=== PATIENT | female | born 1965 | race Caucasian/White ===

== ENCOUNTER 2017-01-19 10:04 | Observation (INO) | payer BC ==
--- NOTE | ~2017-01-19 | HP ---
History And Physical [facility] [address] [place]. [address] NAME: YEN VEGA : 63 STATUS : ADM IN [facility]#: [id number] AGE: 51 ADM/REG DATE : 01/19/17 MR#: [id number] REPORT SERV DATE: 01/19/17 DICTATED BY: ERLIN METZGER DATE: 01/19/17 REPORT STATUS : Draft TRANSCRIBED BY: MODMaria Elena DATE: 01/19/17 DATE OF ADMISSION: 01/19/2017 CHIEF COMPLAINT: Non-ST elevation MS. HISTORY OF PRESENT ILLNESS: The patient is a 51-year-old woman with a history of type 2 diabetes, hypertension, hypercholesterolemia, and morbid obesity. She was previously seen by my partner, Dr. Danny Rosario for symptoms of palpitations secondary to PVCs and PACs. She was admitted to a treatment facility for opiate narcotic abuse. She felt poorly for the last two days. She had symptoms of fatigue, dyspnea, and some right-sided chest discomfort. She thought her blood pressure and blood sugar were low. She presented to a local emergency room where laboratory studies were checked. Initial troponin negative, second troponin 0.1, which is above the normal limits. She was transferred for further evaluation and for cardiac catheterization in the setting of a non-ST elevation MS to [facility]. The patient is examined today, in no distress. She is having some mild midsternal chest discomfort currently. She has not had any dyspnea. PAST MEDICAL HISTORY: 1. Morbid obesity. 2. Narcotic abuse/dependence. 3. History of back surgery. 4. Status post breast reduction surgery. 5. Status post cholecystectomy. 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 She rarely drinks alcohol. FAMILY HISTORY: There is no family history of early coronary artery disease. REVIEW OF SYSTEMS: A complete review of systems was obtained, which is negative in detail except as mentioned above in the HPI. ALLERGIES: ARE LISTED IN THE CHART, WHICH I REVIEWED. NOTABLY THESE INCLUDE SULFA AND SEVERAL ANTIBIOTICS. MEDICATIONS: Naloxone, Lexapro, Neurontin, insulin, Desyrel. PHYSICAL EXAMINATION: VITAL SIGNS: Blood pressure 127/80, heart rate of 74, respiratory rate of 14. GENERAL: Comfortable in no acute distress. HEENT: Anicteric. No xanthelasma. Lips without cyanosis. NECK: No JVD. Carotids 2+ and symmetric. No carotid bruits. LUNGS: CTA bilaterally. No wheezes or rhonchi. No accessory muscle use. COR: RRR. Normally placed PMI. Normal S1 and S2. No murmurs, rubs or gallops. ABD: Soft, nontender, nondistended. Normal bowel sounds. No abdominal bruits. History And Physical [address] [address] NAME: YEN VEGA : 63 STATUS : ADM IN PAT#: [id number] AGE: 51 ADM/REG DATE : 01/19/17 MR#: [id number] REPORT SERV DATE: 01/19/17 DICTATED BY: ERLIN METZGER DATE: 01/19/17 REPORT STATUS : Draft TRANSCRIBED BY: SARAH DATE: 01/19/17 EXT: No clubbing, cyanosis or edema 2+ and symmetric distal pulses. SKIN: Warm. Dry. No venous stasis changes. MS: No kyphosis. NEURO/PSYCH: Oriented x3. No anxiety or depression. EK-lead EKG shows sinus rhythm at 68 beats per minute. T-wave inversions are seen in the anterior precordial leads. No Q-waves. Nonspecific T-wave abnormalities noted. LABORATORY STUDIES: From outside facility include potassium of 3.6, creatinine of 0.63. Troponin of 0.01 and 0.1. IMPRESSION: This is a 51-year-old woman with multiple cardiac risk factors including type 2 diabetes, morbid obesity, hypertension, hypercholesterolemia, who presents with chest pain and abnormal troponin consistent with a non-ST elevation myocardial infarction. I have recommended that the patient undergo cardiac catheterization with possible percutaneous coronary intervention. I explained the risks and benefits of this approach to the patient and family, who wished to proceed. NOEL/SARAH Erlin Metzger M.D. / [id number] CC: Diana Howard M.D.
[~2017-01-19 10:04] MED LIST: LEVEMIR SC; LEXAPRO20 PO; PERCOCET 7.5/321 TAB; V5 PO
[2017-01-19] MEDS ORDERED: NEUR300 PO ×2 (11:04→14:12)
[2017-01-19] MEDS ORDERED: TRAZ50 PO (11:52)
[2017-01-19] MEDS ORDERED: SUBOXONE 4 MG-1 EACH SL (11:56)
[2017-01-19] MEDS ORDERED: PERCOCET 10/3251 TAB PO (14:12)
[2017-01-19] MEDS ORDERED: CYMBALTA60 PO (14:12)
[2017-01-19] MEDS ORDERED: LEVEMFLXPN SC (14:12)
[2017-01-19] MEDS ORDERED: SUBOXONE SL (14:13)
[2017-01-19] MEDS ORDERED: METHOC500B PO (14:13)
[2017-01-19 14:17] LABS: BASOPHILS 0.5 %; BASOPHILS ABSOLUTE 0.04 10/3/uL (0.0-0.16); EOSINOPHILS 0.9 %; EOSINOPHILS ABSOLUTE 0.07 10/3/uL (0.0-0.53); HEMATOCRIT 38.9 % (36.0-48.0); HEMOGLOBIN 13.5 g/dL (12.0-16.0); IMMATURE GRANULOCYTES 0.1 %; IMMATURE GRANULOCYTES ABSOLUTE 0.01 10/3/uL (0.0-0.11); LYMPHOCYTES 45.9 %; LYMPHOCYTES ABSOLUTE 3.51 10/3/uL (0.67-4.30); MEAN CORPUS HGB CONC 34.7 g/dL (32.0-36.0); MEAN CORPUSCULAR HEMOGLOB 29.4 pg (26.0-34.0); MEAN CORPUSCULAR VOLUME 84.7 fL (80-100); MEAN PLATELET VOLUME 10.6 fL (9.2-13.0); MONOCYTES 4.8 %; MONOCYTES ABSOLUTE 0.37 10/3/uL (0.21-1.20); NEUTROPHILS 47.8 %; NEUTROPHILS ABSOLUTE 3.65 10/3/uL (2.02-8.40); PLATELET COUNT 237 10/3/uL (150-400); RBC DISTRIBUTION WIDTH 12.9 % (12.0-16.0); RED CELL COUNT 4.59 10/6/uL (4.0-5.6); WHITE BLOOD CELLS 7.7 10/3/uL (4.5-10.5)
[2017-01-19 14:18] LABS: MANUAL DIFF NO %
[2017-01-19 14:30] LABS: BUN (BLOOD UREA NITROGEN) 10 MG/DL (6-23); CALCIUM, SERUM 8.3 MG/DL (8.5-10.4); CHLORIDE, SERUM 106 MMOL/L (96-112); CHOL/HDL RATIO(NOT ORDER) 3.7 (0-5); CHOLESTEROL 188 MG/DL (< 200); CO2 (CARBON DIOXIDE) 26 MMOL/L (24-34); CREATININE 0.59 MG/DL (0.55-1.02); GFR AFRICAN AMERICAN 122 ML/MIN (>=60); GFR NON AFRICAN AMERICAN 105 ML/MIN (>=60); GLUCOSE, SERUM 78 MG/DL (60-99); HDL CHOLESTEROL 51 MG/DL (> 49); LDL CHOLESTEROL 122 MG/DL (< 130); NON-HDL CHOLESTEROL 137 MG/DL (< 160); POTASSIUM, SERUM 3.9 MMOL/L (3.5-5.3); SODIUM, SERUM 141 MMOL/L (135-148); TRIGLYCERIDE 76 MG/DL (< 150)
[2017-01-19 16:08] LABS: ASCORBIC ACID (UR NOT ORDER) NEG (NEG); BILIRUBIN, URINE NEGATIVE (NEG); KETONE, URINE NEGATIVE (NEG); LEUKOCYTE ESTERASE(NOT OR NEG (NEG); WBC (NOT ORDERED) (RFLEX) < 1 (0-5)
[2017-01-19 16:32] LABS: AMPHETAMINES (NOT ORD) NEG (NEG); BARBITURATES (NOT ORDERED NEG (NEG); BENZODIAZEPINES (NOT ORD) NEG (NEG); CANNABINOIDS (THC) NEG (NEG); COCAINE (NOT ORDERED) NEG (NEG); OPIATES NEG (NEG); PHENCYCLIDINE(PCP) NEG (NEG); TRICYCLICS NEG (NEG)
[2017-02-24] MEDS ORDERED: TRAZ50 PO (12:41)
[2017-02-25] MEDS ORDERED: V5 PO (17:29)
[2017-05-30] MEDS ORDERED: ULTRAM50 PO (08:30)
== END 2017-01-20 10:07 | disposition home or self-care (01) ==
LOC: 6NO 10:04
PROVIDERS: Internal Medicine; Internal Medicine Cardiovascular Disease
DX: I21.4 Non-ST elevation (NSTEMI) myocardial infarction (principal); E66.01 Morbid (severe) obesity due to excess calories; I10 Essential (primary) hypertension; E11.9 Type 2 diabetes mellitus without complications; E78.00 Pure hypercholesterolemia, unspecified; F41.9 Anxiety disorder, unspecified; F43.10 Post-traumatic stress disorder, unspecified; F32.9 Major depressive disorder, single episode, unspecified; Z98.890 Other specified postprocedural states; Z90.49 Acquired absence of other specified parts of digestive tract; Z88.2 Allergy status to sulfonamides; Z79.4 Long term (current) use of insulin; Z79.899 Other long term (current) drug therapy; Z88.8 Allergy status to other drugs, medicaments and biological substances; Z90.89 Acquired absence of other organs
CPT/HCPCS: 71010; 80048; 80061; 80305; 81001; 82962; 84484; 84703; 85025; 85610; 93005; 93458; 99152; A9270-GY; C1769; C1887; C1894; G0378; J1200; Q9967

== ENCOUNTER 2017-03-02 09:01 | Inpatient (IN) | payer BC ==
[2017-02-25 17:25] LABS: HEMATOCRIT 39.2 % (36.0-48.0); HEMOGLOBIN 13.8 g/dL (12.0-16.0)
[2017-02-25 17:41] LABS: BUN (BLOOD UREA NITROGEN) 16 MG/DL (6-23); CHLORIDE, SERUM 106 MMOL/L (96-112); CO2 (CARBON DIOXIDE) 34 MMOL/L (24-34); CREATININE 0.74 MG/DL (0.55-1.02); GFR AFRICAN AMERICAN 108 ML/MIN (>=60); GFR NON AFRICAN AMERICAN 93 ML/MIN (>=60); GLUCOSE, SERUM 125 MG/DL (60-99); POTASSIUM, SERUM 4.4 MMOL/L (3.5-5.3); SODIUM, SERUM 141 MMOL/L (135-148)
--- NOTE | ~2017-03-02 | DS ---
Discharge Summary [facility] [address] [place]. [address] NAME: YEN VEGA : 63 STATUS : DIS IN PAT#: [id number] AGE: 51 ADM/REG DATE : 03/02/17 MR#: [id number] REPORT SERV DATE: 03/17/17 DICTATED BY: TYLER SETHI II DATE: 03/16/17 REPORT STATUS : Draft TRANSCRIBED BY: SARAH DATE: 03/16/17 Data Collection from hospitalization DISCHARGE DIAGNOSES: 1. L5-S1 facet instability with history of decompression. 2. Mild L4-5 degenerative disk disease. 3. Significant Modic changes, L5-S1. 4. Right greater than left lower extremity recurrent radiculopathy. 5. Diabetes. 6. Hypertension. 7. Hyperlipidemia. 8. Premature ventricular contractions/premature atrial contractions. 9. Anxiety and depression. 10.Irritable bowel syndrome. CONSULTATIONS: None. PROCEDURES PERFORMED: Revision facetectomy for decompression of L5 and S1 nerve roots; interbody arthrodesis, L5-S1; application of prosthetic device, L5-S1; posterolateral arthrodesis, L5-S1; posterior nonsegmental instrumentation, L5-S1; use of local autograft, allograft substitute, and bone morphogenetic protein; use of microscope and stereotactic spinal imaging, 03/02/2017. PATHOLOGY: Lumbar spine repair-fragmented bone, cartilage, and soft tissue. No evidence was seen of an infectious or neoplastic process. MEDICATIONS: Valium half to one tablet twice a day as needed, Valium 5 mg four times a day as needed, Cymbalta 60 mg every morning, Neurontin as instructed, Levemir 25 units subcutaneously at bedtime, MS Contin 15 mg every 12 hours as needed, Desyrel 50 mg at bedtime. CONDITION AT DISCHARGE: Stable. DISPOSITION: The patient was discharged home on an 1800-calorie diabetic diet with activities as instructed. She would follow up with me, 03/25/2017 and with her primary care provider as needed. HOSPITAL COURSE: This is a 51-year-old female, who complained of thoracic and lumbar-related symptoms. The symptoms are located in the lower back and mid back with radiation into the bilateral lower extremities, chest, and abdomen. The patient has L5-S1 facet instability with history of decompression and mild L4-5 degenerative disk disease. She has right greater than left lower extremity radiculopathy and significant Modic changes at L5-S1. Treatment options were discussed and it was elected to proceed with surgical intervention. She was admitted to the hospital at this time for further evaluation and treatment. Upon admission, she was taken to the operating room, where she underwent the above-mentioned procedure. She tolerated this well and there were no complications. On postop day one, she was stable. She was alert and cooperative. She was in no acute distress. On postop day Discharge Summary [address] [address] NAME: YEN VEGA : 63 STATUS : DIS IN PAT#: [id number] AGE: 51 ADM/REG DATE : 03/02/17 MR#: [id number] REPORT SERV DATE: 03/17/17 DICTATED BY: TYLER SETHI II DATE: 03/16/17 REPORT STATUS : Draft TRANSCRIBED BY: SARAH DATE: 03/16/17 two, lower extremity radiculopathy was improving. We encouraged her to mobilize. Her medications were controlling her pain well. ALENA drain remained in place. On the , she did complain of left lower extremity radiculopathy. The right leg was hurting more preoperatively, but now the left leg was hurting and could be very painful at time. Her dressings were clean, dry, and intact. Discharge planning was performed. Decadron was continued. Neurontin was increased. On 03/07/2017, she looked good. She remained afebrile. Discharge instructions were given. Due to her improved and stable condition, she was discharged home with the above-stated instructions. Information collected by: Aliyah Yo I submit the above information as my discharge summary. MARY ANN/SARAH Tyler Sethi II, M.D. / [id number] CC: Cindy Acuña II, M.D.
--- NOTE | ~2017-03-02 | OP ---
Record Of Operation [facility] [address] [place]. [address] NAME: YEN REYES : 63 STATUS : ADM IN PAT#: [id number] AGE: 51 ADM/REG DATE : 03/02/17 MR#: [id number] REPORT SERV DATE: 03/06/17 DICTATED BY: TYLER SETHI II DATE: 03/06/17 REPORT STATUS : Draft TRANSCRIBED BY: MODL DATE: 03/06/17 DATE OF PROCEDURE: 03/02/2017 PREOPERATIVE DIAGNOSES: 1. L5-S1 facet instability with history of decompression. 2. Mild L4-5 degenerative disk disease. 3. Significant Modic changes, L5-S1. 4. Right greater than left lower extremity recurrent radiculopathy. POSTOPERATIVE DIAGNOSES: 1. L5-S1 facet instability with history of decompression. 2. Mild L4-5 degenerative disk disease. 3. Significant Modic changes, L5-S1. 4. Right greater than left lower extremity recurrent radiculopathy. PROCEDURE: 1. Revision facetectomy for decompression of the L5 and S1 nerve roots. 2. Interbody arthrodesis, L5-S1. 3. Application of prosthetic device, L5-S1. 4. Posterolateral arthrodesis, L5-S1. 5. Posterior nonsegmental instrumentation, L5-S1. 6. Use of local autograft, allograft substitute, and bone morphogenic protein. 7. Use of the microscope and stereotactic spinal imaging. SURGEON: Tyler Sethi M.D. FLUIDS: 1200 mL LR. ESTIMATED BLOOD LOSS: Approximately 75 mL. DRAINS: One drain. COMPLICATIONS: None. ANTIBIOTIC: Preoperatively. IMPLANTS: Alphatec. PREOPERATIVE HISTORY: This is very friendly 51-year-old female, who has increasing low back pain and radiculopathy. The radiculopathy appears to be also secondary to facet instability. We have already performed surgery previously for a laminectomy. At this point, I felt that the surgery would require an aggressive decompression of the exiting nerve root as well. There was some degree of up-down stenosis aggravating the L5 nerve root. We discussed the pros and cons of surgery as well as the expected outcomes regarding improving back pain and leg pain respectively. Record Of Operation [facility] [address] [place]. [address] NAME: YEN REYES : 63 STATUS : ADM IN PAT#: [id number] AGE: 51 ADM/REG DATE : 03/02/17 MR#: [id number] REPORT SERV DATE: 03/06/17 DICTATED BY: TYLER SETHI II DATE: 03/06/17 REPORT STATUS : Draft TRANSCRIBED BY: MODMaria Elena DATE: 03/06/17 DESCRIPTION OF PROCEDURE: After informed consent was obtained, Ms. Reyes was brought to the operating room at her request, and general anesthesia was achieved. She was placed in a prone position. The back was prepped and draped in a sterile fashion. The stereotactic spinal pin was placed into the left iliac crest and the intraoperative CT scan was completed. The stereotactic guidance was then used throughout the case. At this point, the minimally invasive incision was performed on the right at L5-S1. The quadrant retractor was placed. Please also note that I felt that L4-5 was not degenerative enough in my opinion, or stenotic enough to warrant surgery. At this point, the microscope was brought into place and under microscopic visualization, the transverse process was identified and dissected upon as was the sacral ala. The medial- to-lateral blades were used followed by a high-speed bur for the revision facetectomy. The pars was now removed as well as the spinal laminar junction was taken down to decompress the central canal. The scarring was minimal. At this point, the ligamentum flavum was further removed on the right and the L5 nerve root identified. There was moderate compression upon it from the facet prior to its removal. The L5 nerve root was then well decompressed. We then turned our attention to the S1 nerve root where additional facet and ligament was removed. Both nerve roots were now found to be acceptably decompressed. Next, the interbody arthrodesis was initiated with diskectomy. The nerve root retractor was used to gently retract the S1 nerve root. The endplates were prepared with the curettes, the emi, and pituitary rongeurs. After irrigation the prosthetic device was then placed at L5-S1. This was placed into the anterior column alongside also local autograft, allograft substitute, and bone morphogenic protein. Next, the posterior segmental instrumentation was applied with two screws in L5 and S1. Three percutaneous screws were placed on the left. A repeated CT scan confirmed acceptable placement of the implants. The rods were then well assembled and final tightening performed. At this point, the decortication was performed on the right transverse process of L5 and the sacral ala. Local autograft, allograft substitute, and bone morphogenic protein were placed along these decorticated surfaces. A deep drain was placed followed by standard closure, and the patient was then extubated and transferred to PACU in stable condition. SRIDHAR/SARAH Tyler Sethi II, M.D. / [id number] CC: Tyler Sethi II, M.D. Record Of [address] [address] NAME: YEN REYES : 63 STATUS : ADM IN [facility]#: [id number] AGE: 51 ADM/REG DATE : 03/02/17 MR#: [id number] REPORT SERV DATE: 03/06/17 DICTATED BY: TYLER STEHI II DATE: 03/06/17 REPORT STATUS : Draft TRANSCRIBED BY: SARAH DATE: 03/06/17 Nadine Correia M.D.
[~2017-03-02 09:01] MED LIST changes: +CYMBALTA60 PO; +LEVEMFLXPN SC; +METHOC500B PO; +NEUR300 PO; +PERCOCET 10/3251 TAB PO; +SUBOXONE 4 MG-1 EACH SL; +SUBOXONE SL; +TRAZ50 PO
[2017-03-07] MEDS ORDERED: V5 PO (07:47)
[2017-03-07] MEDS ORDERED: NEUR400 PO (07:49)
[2017-03-07] MEDS ORDERED: MSCONT15 PO (07:49)
[2017-05-30] MEDS ORDERED: ULTRAM50 PO (08:30)
== END 2017-03-07 10:48 | disposition home or self-care (01) | DRG 460 ==
LOC: SDC/OF 09:01 → PACU 15:17 → 4SO 16:17
PROVIDERS: Orthopaedic Surgery
PROC: BR29ZZZ Computerized Tomography (CT Scan) of Lumbar Spine (ICD-10-PCS; principal; 2017-03-02 10:45)
PROC: 0SG30A1 (ICD-10-PCS; principal; 2017-03-02 10:45)
PROC: 0SG3071 Fusion of Lumbosacral Joint with Autologous Tissue Substitute, Posterior Approach, Posterior Column, Open Approach (ICD-10-PCS; principal; 2017-03-02 10:45)
PROC: 0SB40ZZ Excision of Lumbosacral Disc, Open Approach (ICD-10-PCS; principal; 2017-03-02 10:45)
DX: M51.17 Intervertebral disc disorders with radiculopathy, lumbosacral region (principal); I10 Essential (primary) hypertension; E78.5 Hyperlipidemia, unspecified; Z79.891 Long term (current) use of opiate analgesic; F32.9 Major depressive disorder, single episode, unspecified; F41.9 Anxiety disorder, unspecified; E11.9 Type 2 diabetes mellitus without complications; K58.9 Irritable bowel syndrome, unspecified; Z88.1 Allergy status to other antibiotic agents; Z88.2 Allergy status to sulfonamides; Z88.5 Allergy status to narcotic agent; Z88.8 Allergy status to other drugs, medicaments and biological substances; M48.07 Spinal stenosis, lumbosacral region
CPT/HCPCS: 80048; 82962; 84703; 85014; 85018; 87641; 88304; 88311; 93005; 97110-GP; 97116-GP; 97161-GP; A9270-GY; C1713; C1768; C1769; J1170; J1580; J2175; J2250; J2405; J2550; J2710; J3010; J3370